=== PATIENT | male | born 2000 | race Hispanic/Latino ===

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

== ENCOUNTER 2022-04-02 05:02 | Emergency (ER) | payer OTHER ==
[~2022-04-02] VITALS: Ht 167.6 cm; Wt 99.8 kg
== END 2022-04-02 06:21 | disposition home or self-care (01) ==
LOC: FSED 05:44
DX: R00.2 Palpitations (principal)
CPT/HCPCS: 93005; 99283

== ENCOUNTER 2024-03-31 19:01 | Emergency (ER) | payer SELFPAY ==
[~2024-03-31] VITALS: Ht 167.6 cm; Wt 99.8 kg
[2024-03-31 19:10] VITALS: PULSE 70; RESP 18; TEMP 99; O2SAT 99
[2024-03-31] MEDS ORDERED: PREDNISONE20 MG PO (19:15)
[2024-03-31] MEDS: DIPHENHYDRAMINE HCL 25 MG CAP PO ONE (19:25)
[2024-03-31] MEDS: DEXAMETHASONE SOD PHOS 10 MG/1 ML VIAL IM ONE (19:26)
[2024-03-31] MEDS ORDERED: DEXAMETHASONE SOD PHOS INJ 4 MG/ML SDV ONE (19:28)
== END 2024-03-31 19:32 | disposition home or self-care (01) ==
LOC: FSED 19:04
DX: R50.9 Fever, unspecified (principal); L50.9 Urticaria, unspecified; T78.40XA Allergy, unspecified, initial encounter
CPT/HCPCS: 99282; J1100

== ENCOUNTER 2024-11-07 19:27 | Emergency (ER) | payer OTHER ==
[~2024-11-07] VITALS: Ht 167.6 cm; Wt 97.5 kg
[~2024-11-07 19:27] MED LIST: PREDNISONE20 MG PO
[2024-11-07 19:50] VITALS: PULSE 71; RESP 19; TEMP 98.3
[2024-11-07 21:22] VITALS: BP 141/83; PULSE 71; RESP 19; TEMP 98.3; O2SAT 98
== END 2024-11-07 20:00 | disposition home or self-care (01) ==
LOC: FSED 19:42
DX: S16.1XXA Strain of muscle, fascia and tendon at neck level, initial encounter (principal); S39.012A Strain of muscle, fascia and tendon of lower back, initial encounter; V43.52XA Car driver injured in collision with other type car in traffic accident, initial encounter; Y92.488 Other paved roadways as the place of occurrence of the external cause
CPT/HCPCS: 99283